=== PATIENT | male | born 1960 | race Two or more races ===

== ENCOUNTER 2019-01-15 00:50 | Inpatient (IN) | payer MEDICAID, OTHER ==
[~2019-01-15] VITALS: Ht 165.1 cm; Wt 74.4 kg
[2019-01-15] VITALS (31 sets, daily range): BP systolic 97–122; BP diastolic 55–73
--- NOTE | 2019-01-15 00:55 | NUR ---
RT AT BEDSIDE
--- NOTE | 2019-01-15 01:00 | NUR ---
AC 12 TITAL V. 500 PEEP 5 FIO2 45 VENT SETTING PER PA
--- NOTE | 2019-01-15 01:00 | NUR ---
PT NADER FROM [facility] C/O HEMATURIA SINCE THIS MORNING. PT IS VENT DEPENDEDNT AND HAS G TUBE. NO ACUTE DISTRESS NOTED. BUMP NOTED ON HEAD. PT IS DNR. CONTRACTERS ON ALL EXTREMITIES NOTED. PLACED ON ASSISTANT PRESSMAN AND PULSE OX. WILL CONTINUE TO MONITOR.
--- NOTE | 2019-01-15 01:12 | NUR ---
XRAY AT BEDSIDE
--- NOTE | 2019-01-15 01:15 | NUR ---
SERNA CATHETER INSERTED 16F
--- NOTE | 2019-01-15 01:17 | NUR ---
SENIOR SOLUTIONS ENGINEER AT BEDSIDE FOR LAB COLELCTION
--- NOTE | 2019-01-15 01:24 | NUR ---
RT NOTE Pt rec'd trached on [facility] vent on noted settings given from RN/RT. No resp distress or SOB noted. Trach is patent and secured, alarms are set and audible. Vent plugged into red outlet. Ambu bag bedside. Will continue to monitor. Addendum: 01/15/19 at 0126 by MAREK CASE RT Amended: Links added.
[2019-01-15] MEDS ORDERED: LIDOCAINE 2% JEL UROJET 10 ML MM ONE (01:26)
[2019-01-15 01:30] LABS: BASOPHILS # (AUTO) 0.1 /CMM (0.0-0.2); BASOPHILS % (AUTO) 0.3 % (0.0-2.0); MONOCYTES # (AUTO) 1.1 /CMM (0.1-1.30); MONOCYTES % (AUTO) 4.8 % (2.0-12.0)
[2019-01-15 01:36] LABS: EOSINOPHILS % (AUTO) 3.8 % (0.0-6.0); LYMPHOCYTES # (AUTO) 1.5 /CMM (0.8-4.8); LYMPHOCYTES % (AUTO) 6.3 % (20.0-44.0); MEAN CORPUSCULAR HGB CONC 32 g/dl (31.0-36.0); MEAN CORPUSCULAR VOLUME 91 fL (80-96); NEUTROPHILS # (AUTO) 19.4 /CMM (1.8-8.9); NEUTROPHILS % (AUTO) 84.8 % (43.0-81.0); PLATELET COUNT (AUTO) 118 /CMM (150-450); WHITE BLOOD COUNT (AUTO) 22.9 K/uL (4.3-11.0)
[2019-01-15 01:37] LABS: RED BLOOD CELL COUNT(AUTO) 1.08 MIL/uL (4.5-6.0)
[2019-01-15 01:40] LABS: HEMOGLOBIN 3.1 g/dL (13.5-17.5)
[2019-01-15 01:41] LABS: HEMATOCRIT 10 % (39-51)
[2019-01-15 01:52] LABS: CREATININE 3.3 mg/dL (0.6-1.3)
[2019-01-15 01:55] LABS: APPEARANCE,URINE Cloudy (CLEAR); BILIRUBIN,URINE MODERATE (NEGATIVE); BLOOD, URINE Large Ery/uL (NEGATIVE); COLOR,URINE Red (YELLOW); KETONES,URINE Trace (NEGATIVE); LEUKOCYTE ESTERASE ,URINE Large (NEGATIVE); NITRITE, URINE Positive (NEGATIVE); PROTEIN,URINE >=300 mg/dl (NEGATIVE); UGLUCOSE Negative (NEGATIVE)
[2019-01-15 01:57] LABS: POTASSIUM 7.1 mmol/L (3.5-5.1)
[2019-01-15 01:58] LABS: PH,URINE >9.0 (5.0-8.0)
[2019-01-15] MEDS ORDERED: SODIUM BICARBONATE SYR 50 MEQ/50 ML DISP.SYRIN IV ONE (02:00)
[2019-01-15] MEDS ORDERED: IV NS 0.9% 1,000 ML BAG IV ONE (02:00)
[2019-01-15] MEDS ORDERED: DEXTROSE 50%-WATER 50 ML DISP.SYRIN IV ONE (02:00)
[2019-01-15] MEDS ORDERED: SODIUM BICARBONATE SYR 100 MEQ in IV D5W 1,000 ML IV ONE (02:00)
[2019-01-15] MEDS ORDERED: CALCIUM CHLORIDE 1,000 MG/10 ML DISP.SYRIN IV ONE (02:00)
[2019-01-15] MEDS ORDERED: MULT1TAB73 GT (02:07)
[2019-01-15] MEDS ORDERED: DOCU100C36 PO (02:07)
[2019-01-15] MEDS ORDERED: OMEG100037 GT (02:07)
[2019-01-15] MEDS ORDERED: SENN-168 GT (02:07)
[2019-01-15] MEDS ORDERED: DEXTROSE 50%-WATER 50 ML DISP.SYRIN ONE (02:07)
[2019-01-15] MEDS ORDERED: LEVE250T2 PO (02:07)
[2019-01-15] MEDS ORDERED: SODIUM BICARBONATE SYR 50 MEQ/50 ML DISP.SYRIN ONE ×2 (02:07→02:08)
[2019-01-15] MEDS ORDERED: CALCIUM CHLORIDE 1,000 MG/10 ML DISP.SYRIN ONE (02:07)
[2019-01-15] MEDS ORDERED: AMLO5TAB9 PO (02:07)
[2019-01-15] MEDS ORDERED: ATOR10TA GT (02:07)
[2019-01-15] MEDS ORDERED: ONDANSETRON HCL/PF 4 MG/2 ML VIAL IVP PRN (02:30)
[2019-01-15] MEDS ORDERED: Z GUARD REMEDY 2 OZ OINT TP PRN (02:30)
[2019-01-15] MEDS ORDERED: HYDROCODONE/APAP 5/325MG 1 EACH TABLET PO PRN (02:30)
[2019-01-15] MEDS ORDERED: MAG HYDROX/AL HYDROX/SIMETH 30 ML UDC PO PRN (02:30)
[2019-01-15 02:32] LABS: EOSINOPHILS % (MANUAL) 3 % (0-4); LYMPHOCYTES % (MANUAL) 10 % (16-48); MONOCYTES % (MANUAL) 5 % (0-11.0); NEUTROPHILS % (MANUAL) 82 (42-76)
[2019-01-15 02:33] LABS: RBC,URINE TOO NUMEROUS TO COUN /HPF (0-2)
[2019-01-15 02:34] LABS: BACTERIA,URINE Many /HPF (None Seen); SQUAMOUS EPITHELIAL CELL,UR Rare /HPF (None Seen)
--- NOTE | 2019-01-15 03:23 | NUR ---
BLOOD TRANSFUSION INITIATED.
--- NOTE | 2019-01-15 03:28 | NUR ---
No reactions noted to Blood transfusion.
--- NOTE | 2019-01-15 03:43 | NUR ---
No reaction noted to blood transfusion
[2019-01-15] MEDS ORDERED: PIPERACILLIN /TAZOBACTAM 3.375 G VIAL IV ONE (04:10)
[2019-01-15] MEDS ORDERED: PIPERACILLIN /TAZOBACTAM 3.375 G in IV D5W 50 ML IV ONE (04:30)
--- NOTE | 2019-01-15 04:38 | NUR ---
BED ASSIGNMENT: [id number]
--- NOTE | 2019-01-15 05:46 | NUR ---
REPORT GIVEN TO IAN RODRIGUEZ FOR ARASH
--- NOTE | 2019-01-15 06:00 | NUR ---
received patient in no acute distress in bed. patient is obtunded, but opens eyes. patient has GCS of 10. Patient is on o2 via mechanical ventilator with setting at ac12, tv 500, fio3 60%, peep 5. patient has trach portex # 7 that is clean dry and intact. patient placed on monitor with sinus rhythm on the monitor. patient has gtube that is clean dry intact and patent with free water flush. patient has left ac 18g that is clean dry intact and patent with sodium bicarb at 100ml/hr. patient has left wrist 18g that is clean dry intact and patent with saline lock. bed in low lock position with rials up x 2. call light within reach and all safety measures ensured and carried out. will endorse care to am rn for continuity of care.
--- NOTE | 2019-01-15 06:15 | NUR ---
Pt transfered per ACLS protocol.
--- NOTE | 2019-01-15 07:00 | NUR ---
endorsed care to fletcher rhoades for continuity of care.
--- NOTE | 2019-01-15 07:05 | NUR ---
RN NOTES RECEIVED PT ON BED, VENT/ TRACH DEPENDENT, OBTUNDED, NO DISTRESS NOTED, ON TELE SR HR IN 70'S. SERNA DRINING TO GRAVITY, L WRIST AND L AC IV SITE GT 18 , CLEAN, DRY AND INTACT, SR UP x3, CALL LIGHT WITHIN EASY REACH, BED LOCKED AND IN LOWEST POSITION, CONTINUE TO MONITOR
[2019-01-15 07:07] LABS: BASOPHILS # (AUTO) 0.1 /CMM (0.0-0.2); BASOPHILS % (AUTO) 0.2 % (0.0-2.0); EOSINOPHILS % (AUTO) 3.1 % (0.0-6.0); LYMPHOCYTES % (AUTO) 5.4 % (20.0-44.0); MEAN CORPUSCULAR HGB CONC 32 g/dl (31.0-36.0); MEAN CORPUSCULAR VOLUME 91 fL (80-96); MONOCYTES # (AUTO) 1.7 /CMM (0.1-1.30); MONOCYTES % (AUTO) 4.5 % (2.0-12.0); NEUTROPHILS # (AUTO) 32.4 /CMM (1.8-8.9); NEUTROPHILS % (AUTO) 86.8 % (43.0-81.0); PLATELET COUNT (AUTO) 101 /CMM (150-450)
[2019-01-15 07:15] LABS: RED BLOOD CELL COUNT(AUTO) 1.65 MIL/uL (4.5-6.0); WHITE BLOOD COUNT (AUTO) 37.4 K/uL (4.3-11.0)
[2019-01-15 07:16] LABS: CHOLESTEROL 48 mg/dL (<200); HEMATOCRIT 15 % (39-51); HEMOGLOBIN 4.8 g/dL (13.5-17.5); LDL 18 mg/dL (0-99); TRIGLYCERIDES 250 mg/dL (30-150)
[2019-01-15 07:19] LABS: HDL CHOLESTEROL < 10 mg/dL (40-60)
[2019-01-15 07:23] LABS: CALCIUM, SERUM 11.4 mg/dL (8.5-10.1); CARBON DIOXIDE 21 mmol/L (21-32); CHLORIDE 98 mmol/L (98-107); CREATININE 2.9 mg/dL (0.6-1.3); GLUCOSE 87 mg/dL (74-106); MAGNESIUM 2.3 mg/dL (1.8-2.4); PHOSPHORUS 6.2 mg/dL (2.5-4.9); SODIUM SERUM 133 mmol/L (136-145)
[2019-01-15 07:24] LABS: UREA NITROGEN, BLOOD 81 mg/dL (7-18)
[2019-01-15] MEDS ORDERED: FEE PK DOSING 1 MIN EA MC ONE (08:25)
[2019-01-15] MEDS ORDERED: DEXTROSE 50%-WATER 50 ML DISP.SYRIN IVP ONE (08:30)
[2019-01-15] MEDS ORDERED: SODIUM POLYSTYRENE SULFONATE 15 G/60 ML BOTTLE PO ONE (08:30)
[2019-01-15] MEDS ORDERED: IV NS 0.9% 1,000 ML IV SCH (08:30)
[2019-01-15] MEDS ORDERED: INSULIN REGULAR, HUMAN 100 UNIT/ML 3 ML VIAL IV ONE (08:30)
[2019-01-15] MEDS: LEVETIRACETAM (250 MG) 250 MG TABLET PO SCH ×2 (08:46→16:08)
[2019-01-15] MEDS: MULTIVITAMINS,THERAGRAN 1 UDTAB TABLET PO SCH (08:46)
[2019-01-15] MEDS: AMLODIPINE BESYLATE 5 MG TABLET PO SCH (08:58)
[2019-01-15] MEDS ORDERED: Medication Not On Formulary EA (Omega-3/Dha/Epa/Fish Oil (Fish Oil 1,000 mg Softgel) 1,0 GT SCH (09:00)
[2019-01-15] MEDS ORDERED: Medication Not On Formulary EA (Multivitamins 1 EACH) GT SCH (09:00)
[2019-01-15] MEDS ORDERED: VANCOMYCIN HCL 1 GM in IV D5W 260 ML IV ONE (09:00)
[2019-01-15] MEDS: FAMOTIDINE/PF INJ 20 MG/2 ML VIAL IV SCH ×2 (09:40→20:39)
[2019-01-15 09:45] LABS: ABG OXYGEN SATURATION 98.2 % (92.0-98.5); ABG PCO2 37.6 mmHg (35.0-45.0); ABG PH 7.397 (7.350-7.450); ABG PO2 125.9 mmHg (75.0-100.0); AaDO2 116.1 mmHg; COHb 1.5 % (0.5-1.5); MetHb 1.2 % (0.0-1.5); O2Hb 95.5 % (94.0-97.0); SITE, ABG Right Radial
[2019-01-15] MEDS: IPRATROPIUM NEB FS 0.5 MG/2.5 ML AMPUL.NEB NEB SCH ×5 (09:54→23:20)
[2019-01-15] MEDS ORDERED: ALBUTEROL FS 2.5 MG/3 ML VIAL.NEB NEB ONE (10:00)
[2019-01-15] MEDS ORDERED: BUMETANIDE INJ 0.25 MG/ML VIAL IV ONE (10:30)
[2019-01-15 10:37] LABS: BAND % (MANUAL) 17 % (0.0-5.0); EOSINOPHILS % (MANUAL) 10 % (0-4); LYMPHOCYTES % (MANUAL) 13 % (16-48); METAMYELOCYTES % 5 % (0-0); MONOCYTES % (MANUAL) 7 % (0-11.0); MYELOCYTES % 2 % (0-0); NEUTROPHILS % (MANUAL) 46 (42-76)
[2019-01-15] MEDS ORDERED: BUMETANIDE INJ 2 MG in IV NS 0.9% 32 ML IV ONE (11:00)
[2019-01-15] MEDS: ALBUTEROL HALF STRENGTH 1.25 MG/3 ML VIAL.NEB NEB SCH ×4 (11:13→23:20)
[2019-01-15 12:35] LABS: CREATININE 2.8 mg/dL (0.6-1.3)
[2019-01-15 12:46] LABS: POTASSIUM 6.2 mmol/L (3.5-5.1)
[2019-01-15 12:50] LABS: IRON, SERUM 27 ug/dl (50-175); TOTAL IRON BINDING CAPACITY 216 ug/dl (250-450)
[2019-01-15 13:22] LABS: BASOPHILS # (AUTO) 0.1 /CMM (0.0-0.2); BASOPHILS % (AUTO) 0.2 % (0.0-2.0); EOSINOPHILS % (AUTO) 11.7 % (0.0-6.0); LYMPHOCYTES # (AUTO) 1.7 /CMM (0.8-4.8); LYMPHOCYTES % (AUTO) 6.6 % (20.0-44.0); MEAN CORPUSCULAR HGB CONC 33 g/dl (31.0-36.0); MEAN CORPUSCULAR VOLUME 89 fL (80-96); MONOCYTES # (AUTO) 0.7 /CMM (0.1-1.30); MONOCYTES % (AUTO) 2.6 % (2.0-12.0); NEUTROPHILS # (AUTO) 20.9 /CMM (1.8-8.9); NEUTROPHILS % (AUTO) 78.9 % (43.0-81.0); PLATELET COUNT (AUTO) 98 /CMM (150-450); RED BLOOD CELL COUNT(AUTO) 2.23 MIL/uL (4.5-6.0); WHITE BLOOD COUNT (AUTO) 26.5 K/uL (4.3-11.0)
[2019-01-15 13:31] LABS: HEMATOCRIT 20 % (39-51); HEMOGLOBIN 6.5 g/dL (13.5-17.5)
--- NOTE | 2019-01-15 14:12 | NUR ---
RN NOTES DR REYNOLDS NOTIFED REGARDING K=6.2, LA 2.8 H/H 6.5/20 AND PROCALCITONIN 36.91 , NO NEW ORDER GIVEN, CONTINUE TO MONITOR .
[2019-01-15 14:47] LABS: BAND % (MANUAL) 30 % (0.0-5.0); NEUTROPHILS % (MANUAL) 40 (42-76)
[2019-01-15 14:48] LABS: EOSINOPHILS % (MANUAL) 10 % (0-4); LYMPHOCYTES % (MANUAL) 6 % (16-48); METAMYELOCYTES % 10 % (0-0); MONOCYTES % (MANUAL) 2 % (0-11.0); MYELOCYTES % 2 % (0-0)
[2019-01-15] MEDS: IV NS 0.9% 1,000 ML IV SCH (15:39)
[2019-01-15] MEDS: NEPRO 1,000 ML BOTTLE GT PRN (15:58)
--- NOTE | 2019-01-15 16:00 | NUR ---
RN NOTES DR RODRIGUEZ AT THE BEDSIDE, PT STATED ON BLADER IRRIGATION BY . CONTINUE TO MONITOR.
[2019-01-15 16:03] LABS: BILIRUBIN,DIRECT 1.2 mg/dL (0.0-0.2); BILIRUBIN,TOTAL 1.7 mg/dL (0.2-1.0)
[2019-01-15] MEDS: ACETAMINOPHEN 325 MG TABLET PO PRN (16:08)
--- NOTE | 2019-01-15 16:43 | NUR ---
RN NOTES DR REYNOLDS NOTIFED REGARDING LA =2.9
--- NOTE | 2019-01-15 18:45 | NUR ---
RN NOTES TWO UNITS OF PRBC'S INFUSED ON THIS SHIFT, BLADDER IRRIGATION RUNNING , SERNA DRINING LIGHT BLOODY URINE, VSS STABLE, PT TOLERANT TF AT 10CC/HR WELL, NO BM YET ON THIS SHIFT, SR UP x3, CALL LIGHT WITHIN EASY REACH, BED LOCKED AND IN LOWEST POSITION, WILL ENDOSE TO LUMBER STACKER NURSE FOR CONTINUITY OF CARE.
[2019-01-15] MEDS ORDERED: diphenhydrAMINE HCL 50 MG/ML VIAL IV ONE (19:30)
[2019-01-15] MEDS ORDERED: ACETAMINOPHEN 325 MG TABLET PO ONE (19:30)
[2019-01-15] MEDS ORDERED: PHYTONADIONE INJ 10 MG/1 ML AMPUL SQ ONE (19:30)
[2019-01-15] MEDS ORDERED: FOLIC ACID 1 MG TABLET PO SCH (19:30)
[2019-01-15 19:50] LABS: ALBUMIN 1.5 g/dL (3.4-5.0); BILIRUBIN,DIRECT 1.5 mg/dL (0.0-0.2); TOTAL PROTEIN, SERUM 6.1 g/dL (6.4-8.2)
--- NOTE | 2019-01-15 20:00 | NUR ---
MAIL HANDLER EQUIPMENT OPERATOR NOTE PT IN BED OBTUNDED. ON VENT/TRACH TOLERATING THE SETTINGS WELL. NO DISTRESS OR DISCOMFORT NOTED. NO S/S OF PAIN NOTED. ON TELE ST HR 102. F/C INTACT AND PATENT ON CONTINUES IRRIGATION URINE COLOR PICK TO LIGHT REDDISH. GT INTACT AND PATENT INFUSING JEVITY 1.8 AT 10 ML/HR, 0 ML RESIDUAL NOTED. KEPT HOB ELEVATED. WILL INCREASE IT PT IS TOLERATING IT. IVF NS INFUSING AT 125 ML/HR, NO S/S OF INFILTRATION NOTED. REPOSITION HIM FOR COMFORT AND SKIN MANAGEMENT. SIDE RAILS UP X 3 AND CALL LIGHT WITHIN REACH. VSS. CONTINUE TO MONITOR HIM.
[2019-01-15] MEDS: FOLIC ACID 1 MG TABLET PO SCH (20:56)
[2019-01-15] MEDS ORDERED: ZOLPIDEM TARTRATE 5 MG TABLET PO PRN (21:00)
[2019-01-15] MEDS: PIPERACILLIN /TAZOBACTAM 2.25 G in IV D5W 50 ML IV SCH (21:04)
[2019-01-15] MEDS: SENNOSIDES 8.6 MG TABLET GT SCH (21:06)
[2019-01-15] MEDS: DOCUSATE SODIUM 100 MG CAPSULE PO SCH (21:06)
[2019-01-15] MEDS: ATORVASTATIN 10 MG TABLET GT SCH (21:06)
--- NOTE | 2019-01-15 21:17 | NUR ---
PROFESSIONAL ARCHITECT NOTE ON TELE MONITOR PT IS A FLUTTER AT THIS TIME HR 80. CHARGE NURSE MADE AWARE.
--- NOTE | 2019-01-15 21:30 | NUR ---
CHIEF WHEELAGE CLERK NOTE 1 UNIT OF PRBC STARTED VSS. THIS IS THE 4 UNIT OF PRBC. DAY SHIFT GIVEN THE OTHERS.
--- NOTE | 2019-01-15 22:00 | NUR ---
HEATING ELEMENT WINDER NOTE PT BACK ON SR HR 80. INCONTINENCE CARE GIVEN. BM X 1 SEMI LIQUIDY MODERATE AMOUNT.
[2019-01-16] VITALS (25 sets, daily range): BP systolic 99–124; BP diastolic 59–78
[2019-01-16] MEDS: IV NS 0.9% 1,000 ML IV SCH ×3 (03:18→22:12)
[2019-01-16] MEDS: PIPERACILLIN /TAZOBACTAM 2.25 G in IV D5W 50 ML IV SCH ×3 (03:34→15:25)
[2019-01-16] MEDS: ALBUTEROL HALF STRENGTH 1.25 MG/3 ML VIAL.NEB NEB SCH ×7 (03:50→23:23)
[2019-01-16] MEDS: IPRATROPIUM NEB FS 0.5 MG/2.5 ML AMPUL.NEB NEB SCH ×7 (03:50→23:23)
[2019-01-16 04:29] LABS: EOSINOPHILS % (AUTO) 2.6 % (0.0-6.0); HEMATOCRIT 24 % (39-51); HEMOGLOBIN 8.5 g/dL (13.5-17.5); LYMPHOCYTES # (AUTO) 1.3 /CMM (0.8-4.8); LYMPHOCYTES % (AUTO) 7.8 % (20.0-44.0); MEAN CORPUSCULAR HGB CONC 35 g/dl (31.0-36.0); MEAN CORPUSCULAR VOLUME 89 fL (80-96); MONOCYTES # (AUTO) 0.6 /CMM (0.1-1.30); MONOCYTES % (AUTO) 3.7 % (2.0-12.0); NEUTROPHILS # (AUTO) 14.4 /CMM (1.8-8.9); NEUTROPHILS % (AUTO) 85.9 % (43.0-81.0); PLATELET COUNT (AUTO) 58 /CMM (150-450); RED BLOOD CELL COUNT(AUTO) 2.74 MIL/uL (4.5-6.0); WHITE BLOOD COUNT (AUTO) 16.8 K/uL (4.3-11.0)
[2019-01-16 04:32] LABS: OCCULT BLOOD STOOL POSITIVE (NEGATIVE)
[2019-01-16 04:36] LABS: CALCIUM, SERUM 10.1 mg/dL (8.5-10.1); CREATININE 2.6 mg/dL (0.6-1.3)
[2019-01-16 05:04] LABS: THYROID STIMULATING HORMONE 2.2 uIU/mL (0.358-3.74)
[2019-01-16 05:42] LABS: BASOPHILS % (MANUAL) 1 % (0.0-2.0); EOSINOPHILS % (MANUAL) 1 % (0-4); LYMPHOCYTES % (MANUAL) 7 % (16-48); MONOCYTES % (MANUAL) 3 % (0-11.0); NEUTROPHILS % (MANUAL) 88 (42-76)
--- NOTE | 2019-01-16 07:03 | NUR ---
CARTOONIST SPECIAL EFFECTS NOTE 2 UNIT FOR FFP HUNGED AND INFUSING WELL. VSS. NO DISTRESS OR DISCOMFORT NOTED. ON TELE SR 90. BLADDER IRRIGATION CONTINUES REMAIN WITH SMALL AMOUNT OF CLOTS AND COLOR LIGHT REDDISH. DVT PUMP ON LOWER EXT'S. IVF NS INFUSING AT 75 ML INFUSING WELL, NO S/S OF INFILTRATION NOTED. ALL NEEDS ATTENDED. REPOSITION HIM Q2H, KEPT HIM DRY AND CLEAN. VSS. ENDOSE TO DAY SHIFT NURSE ADEL FOR CONTINUE TO CARE.
--- NOTE | 2019-01-16 07:10 | NUR ---
RN NOTE RECEIVED PT ON BED, VENT/ TRACH DEPENDENT, TOLERATING , CURRENT VENT SETTING WELL, RECEIVING 1 UNIT FOR FFP AT THIS TIME, NO DISTRESS NOTED, ON TELE SR HR IN 90'S , BLADDER IRRIGATION CONTINUES REMAIN WITH SMALL AMOUNT OF CLOTS AND COLOR LIGHT REDDISH. DVT PUMP ON LOWER EXT'S. IVF NS INFUSING AT 75 ML INFUSING WELL, NO S/S OF INFILTRATION NOTED. SR UP x3, CALL LIGHT WITHIN EASY REACH, BED LOCKED AND IN LOWEST POSITION. CONTINUE TO MONITOR .
[2019-01-16] MEDS: MULTIVITAMINS,THERAGRAN 1 UDTAB TABLET PO SCH (08:11)
[2019-01-16] MEDS: LEVETIRACETAM (250 MG) 250 MG TABLET PO SCH ×2 (08:11→16:21)
[2019-01-16] MEDS: FAMOTIDINE/PF INJ 20 MG/2 ML VIAL IV SCH ×2 (08:11→21:42)
[2019-01-16] MEDS: AMLODIPINE BESYLATE 5 MG TABLET PO SCH (08:12)
[2019-01-16] MEDS: FOLIC ACID 1 MG TABLET PO SCH (08:12)
[2019-01-16] MEDS ORDERED: VANCOMYCIN 0.75 GM in IV D5W 250 ML IV SCH (09:00)
[2019-01-16] MEDS ORDERED: FOLIC ACID 1 MG TABLET PO SCH (09:00)
--- NOTE | 2019-01-16 10:05 | NUR ---
WOUND CARE CONSULT: PT PRESENTS WITH INCONTINENCE OF VERY LOOSE STOOL, SACRAL SCARRING WHICH EXTENDS TO BUTTOCKS, INCONTINENCE ASSOCIATED SKIN DAMAGE TO BUTTOCKS WITH EDEMA AND PERIANAL REDNESS, ALL PRESENT ON ADMISSION. RECOMMENDATIONS MADE FOR SKIN PROTECTION. DISCUSSED WITH NURSING STAFF. FIRST STEP LOW AIRLOSS MATTRESS ON ORDER. WILL SEE PRN. REDMOND IN AGREEMENT WITH PLAN OF CARE. Addendum: 01/16/19 at 1007 by SUSI PRICE WNDNU Amended: Links added.
--- NOTE | 2019-01-16 12:00 | NUR ---
RN NOTES PT TOLERATING TF WELL, VSS STABLE , LIGHT BLOODY URINE DRAINING WITH CONTINUOUS BLADDER IRRIGATION, CONTINUE TO MONITOR
[2019-01-16 12:41] LABS: BASOPHILS % (AUTO) 0.1 % (0.0-2.0); HEMATOCRIT 25 % (39-51); HEMOGLOBIN 8.7 g/dL (13.5-17.5); LYMPHOCYTES # (AUTO) 1.1 /CMM (0.8-4.8); LYMPHOCYTES % (AUTO) 7.2 % (20.0-44.0); MEAN CORPUSCULAR HGB CONC 35 g/dl (31.0-36.0); MEAN CORPUSCULAR VOLUME 88 fL (80-96); MONOCYTES # (AUTO) 0.7 /CMM (0.1-1.30); MONOCYTES % (AUTO) 4.5 % (2.0-12.0); NEUTROPHILS # (AUTO) 13.2 /CMM (1.8-8.9); NEUTROPHILS % (AUTO) 86.2 % (43.0-81.0); PLATELET COUNT (AUTO) 61 /CMM (150-450); RED BLOOD CELL COUNT(AUTO) 2.83 MIL/uL (4.5-6.0); WHITE BLOOD COUNT (AUTO) 15.3 K/uL (4.3-11.0)
[2019-01-16 14:36] LABS: BAND % (MANUAL) 20 % (0.0-5.0); EOSINOPHILS % (MANUAL) 1 % (0-4); LYMPHOCYTES % (MANUAL) 9 % (16-48); METAMYELOCYTES % 3 % (0-0); MONOCYTES % (MANUAL) 3 % (0-11.0); MYELOCYTES % 2 % (0-0); NEUTROPHILS % (MANUAL) 62 (42-76)
[2019-01-16] MEDS: NEPRO 1,000 ML BOTTLE GT PRN (14:50)
[2019-01-16] MEDS: LACTOBACILLUS RHAMNOSUS GG 1 EACH CAP.SPRINK GT SCH (16:20)
--- NOTE | 2019-01-16 17:00 | NUR ---
RN NOTES T=102, ЮЛИЯ ENGINEERING DIRECTOR NOITFED, COOLING MEASURES DONE, TYLENOL GIVEN , CONTINUE TO MONITOR
--- NOTE | 2019-01-16 18:00 | NUR ---
RN NOTES OK TO TRANSFER PT TO SEE PER ЮЛИЯ DANIELS .
--- NOTE | 2019-01-16 18:30 | NUR ---
RN NOTES PT TRANSFERRED TO ROOM 104, VIA ACLS PROTOCOL , REPORT GIVEN TO CHANNEL RN FOR CONTINUITY OF CARE .NO BELONGINGS NOTED
--- NOTE | 2019-01-16 18:31 | NUR ---
SEE RN Received patient from COOKER SULFATE Domi. Obtunded, attached to [facility] vent, no SOB or respiratory distress noted. Tele monitor attached, sinus rhythm HR 100, SPO2 100%. GTF running @60mL/hr, no residual noted. Damon catheter 22fr running continuous bladder irrigation NS @100mL/hr, noted hematuria. L wrist 18G, L AC 18G infusing NS @125mL/hr, C/D/I. Temp upon arrival 102.2F, cooling measures in place, medi therm machine at bedside, continuous temp probe in right nares. DVT pumps on and functioning. KCI mattress at bedside, endorse to noc RN. See vitals documentation. Medications transferred and placed in med room. No belongings noted.
[2019-01-16] MEDS: ACETAMINOPHEN 325 MG TABLET PO PRN (19:30)
[2019-01-16] MEDS ORDERED: IBUPROFEN 600 MG TABLET PO ONE (19:30)
--- NOTE | 2019-01-16 20:30 | NUR ---
RN NOTE. INITIAL ASSESSMENT. RECEIVED THE PT REPORT FROM MELINDA RODRIGUEZ. PT REST ON THE BED. TRACH TO VENT CONNECTED. PT IS OBTUNDED, RECEIVED WITH TEMPERATURE 102.5. COOLING MEASURE ON, PT LAST RECEIVED THE TYLENOL 27H AGO. VENT SETTINGS AC 12,TV 500,FIO2 40%,PEEP 5. SAT 98%. FINANCIAL ECONOMIST SHOWING S TACH. IV LT HAND AC 18G. IVF NS 125ML/H, FC PATENT. CONTINUES BLADDER IRRIGATION 100ML/H. HEMATURIA PRESENT. GT FEEDING NEPHRO 60ML/H. HOB ELEVATED. WILL CONTINUE TO MONITOR VITALS.
[2019-01-16] MEDS: DOCUSATE SODIUM 100 MG CAPSULE PO SCH (21:33)
[2019-01-16] MEDS: SENNOSIDES 8.6 MG TABLET GT SCH (21:33)
--- NOTE | 2019-01-16 21:35 | NUR ---
RN NOTE SENOKOT AND COLACE NOT GIVEN. PT HAS LOOSE STOOL
[2019-01-16] MEDS: MEROPENEM 500 MG in IV NS 0.9% 50 ML IV SCH (21:42)
[2019-01-16] MEDS: ATORVASTATIN 10 MG TABLET GT SCH (21:42)
[2019-01-17] VITALS: BP 112/55
[2019-01-17] MEDS: ACETAMINOPHEN 325 MG TABLET PO PRN ×4 (01:09→17:52)
--- NOTE | 2019-01-17 02:29 | NUR ---
rn note report given to yoli rhoades
--- NOTE | 2019-01-17 02:30 | NUR ---
TD RN NOTE: RECEIVED BEDSIDE REPORT FROM JENNIFER MCKINNON. PT OBTUNDED WITH NO APPARENT DISTRESS NOTED. NO FACIAL GRIMACING OR ANY SIGNS OF PAIN NOTED. [facility], SETTINGS ORDERED. NO SOB NOTED. ON TELE MONITOR SINUS RHYTHM HR 90 BPM. SERNA CATH INTACT AND PATENT, HEMATURIA STILL NOTED, ON CONTINUOUS BLADDER IRRIGATION. GT INTACT, NO RESIDUAL NOTED AT THIS TIME. PT NOTED TO HAVE FEVER, TYLENOL GIVEN BY JENNIFER MCKINNON. KEPT CLEAN, DRY AND COMFORTABLE. SAFETY AND FALL PRECAUTIONS OBSERVED AND MAINTAINED. WILL CONTINUE TO MONITOR PT.
[2019-01-17] MEDS ORDERED: IV NS 0.9% 1,000 ML IV PRN (03:00)
[2019-01-17] MEDS: ALBUTEROL HALF STRENGTH 1.25 MG/3 ML VIAL.NEB NEB SCH ×6 (03:13→23:13)
[2019-01-17] MEDS: IPRATROPIUM NEB FS 0.5 MG/2.5 ML AMPUL.NEB NEB SCH ×6 (03:13→23:13)
[2019-01-17 04:00] VITALS: BP 134/76
[2019-01-17 06:32] LABS: CREATININE 2.6 mg/dL (0.6-1.3); POTASSIUM 3.7 mmol/L (3.5-5.1)
[2019-01-17 06:38] LABS: BASOPHILS # (AUTO) 0.1 /CMM (0.0-0.2); BASOPHILS % (AUTO) 0.5 % (0.0-2.0); EOSINOPHILS % (AUTO) 0.7 % (0.0-6.0); HEMATOCRIT 25 % (39-51); HEMOGLOBIN 8.2 g/dL (13.5-17.5); LYMPHOCYTES # (AUTO) 1.3 /CMM (0.8-4.8); LYMPHOCYTES % (AUTO) 7.5 % (20.0-44.0); MEAN CORPUSCULAR HGB CONC 34 g/dl (31.0-36.0); MEAN CORPUSCULAR VOLUME 89 fL (80-96); MONOCYTES # (AUTO) 0.7 /CMM (0.1-1.30); MONOCYTES % (AUTO) 4.2 % (2.0-12.0); NEUTROPHILS % (AUTO) 87.1 % (43.0-81.0); PLATELET COUNT (AUTO) 81 /CMM (150-450); RED BLOOD CELL COUNT(AUTO) 2.78 MIL/uL (4.5-6.0); WHITE BLOOD COUNT (AUTO) 17.3 K/uL (4.3-11.0)
--- NOTE | 2019-01-17 06:44 | NUR ---
TD RN NOTE: PT IN BED, NO ACUTE DISTRESS NOTED. TEMP 101.9, TYLENOL GIVEN ORDERED, COOLING MEASURES PROVIDED. [facility], SETTINGS ORDERED. NO SOB NOTED. ON TELE MONITOR SINUS TACHY HR 102 BPM. SERNA CATH INTACT, DRAINED 600ML OF BLOOD TINGED URINE OUTPUT. GT INTACT AND PATENT ABLE TO TOLERATE FEEDING WELL. KEPT CLEAN, DRY AND COMFORTABLE. SAFETY AND FALL PRECAUTIONS OBSERVED AND MAINTAINED. WILL ENDORSE TO DAY SHIFT RN FOR CONTINUITY OF CARE.
--- NOTE | 2019-01-17 07:30 | NUR ---
RN NOTES RECEIVED PATIENT IN BED, OBTUNDED, NOT ON ANY FORM OF DISTRESS. VENT DEPENDENT, TOLERATING CURRENT VENT SETTING, SATING WELL. SINUS TACHY ON THE HR ON 105. NO INDICATION OF PAIN AT THIS TIME.GT IN PLACE, PLACEMENT CHECK BY CHECKING GASTRIC RESIDUAL: NO RESIDUAL ON CHECKING. GTF RUNNING AT DESIRED RATE. IVF OF NS AT 125CC/HR INFUSING WELL OVER THE LAC G 18 IV SITE. SITE CLEAN, IN PLACE AND DRY. SERNA CATHETER IN PLACE, HEMATURIA NOTED. ON CONTINUOS BLADDER IRRIGATION AT 100CC/HR, WILL CONTINUE TO MONITOR. SAFETY MEASURES OBSERVED AND MAINTAINED. HOB KEPT ELEVATED. BED IN LOW AND LOCKED POSITIONED. CALL LIGHT WITHIN REACH. WILL CONTINUE TO MONITOR PATIENT AND ANTICIPATE NEEDS.
[2019-01-17 08:00] VITALS: BP 138/83
[2019-01-17 08:06] LABS: IMMUNOGLOBULIN A, SERUM 268 mg/dL (90-386); IMMUNOGLOBULIN G, SERUM 703 mg/dL (700-1600); IMMUNOGLOBULIN M, SERUM 43 mg/dL (20-172)
[2019-01-17 08:46] LABS: BAND % (MANUAL) 7 % (0.0-5.0); EOSINOPHILS % (MANUAL) 1 % (0-4); LYMPHOCYTES % (MANUAL) 5 % (16-48); METAMYELOCYTES % 1 % (0-0); MONOCYTES % (MANUAL) 6 % (0-11.0); NEUTROPHILS % (MANUAL) 80 (42-76)
[2019-01-17] MEDS: AMLODIPINE BESYLATE 5 MG TABLET PO SCH (09:13)
[2019-01-17] MEDS: FAMOTIDINE/PF INJ 20 MG/2 ML VIAL IV SCH ×2 (09:13→22:04)
[2019-01-17] MEDS: LACTOBACILLUS RHAMNOSUS GG 1 EACH CAP.SPRINK GT SCH ×2 (09:13→17:52)
[2019-01-17] MEDS: LEVETIRACETAM (250 MG) 250 MG TABLET PO SCH ×2 (09:13→17:52)
[2019-01-17] MEDS: MULTIVITAMINS,THERAGRAN 1 UDTAB TABLET PO SCH (09:13)
[2019-01-17] MEDS: FOLIC ACID 1 MG TABLET PO SCH (09:14)
--- NOTE | 2019-01-17 09:24 | NUR ---
RT RECEIVED PT TRACH'D ON [facility] VENT WITH SETTINGS PER MD ORDER. TECHNOLOGY SALES CONSULTANT DONE. SPARE TRACH AND AMBU BAG AT HEAD OF BED. BREATHING TX'S GIVEN ORDERED. NO ADVERSE REACTIONS OBSERVED. SUCTIONED AND MONITORED PRN. NO SOB NOTED. WILL CONTINUE TO MONITOR FOR ANY CHANGES. Addendum: 01/17/19 at 1538 by RAKEL BRANCH RT Amended: Links added.
[2019-01-17 10:06] LABS: *SPE A/G RATIO 0.5 (0.7-1.7); *SPE ALBUMIN 1.6 g/dL (2.9-4.4); *SPE ALPHA-1-GLOBULIN 0.7 g/dL (0.0-0.4); *SPE ALPHA-2-GLOBULIN 0.8 g/dL (0.4-1.0); *SPE GLOBULIN, TOTAL 3.2 g/dL (2.2-3.9); *SPE M-SPIKE Not Observed g/dL (Not Observed); *SPEGAMMA GLOBULIN 0.7 g/dL (0.4-1.8)
--- NOTE | 2019-01-17 11:00 | NUR ---
JENNIFER NOTES Sandra REDMAN REFUELING RAMPMAN, INFORMED THAT IRRIGATION IS NOT HAVING BACK FLOWS, SERNA CATHETER IS PATENT ON MANUAL FLUSHING WITH 60CC NORMAL SALINE. PER WALDO IV SHOULD BE STOPPED. SHE IS ALSO AWARE THAT PATIENT'S STOMACH IS DISTENDED. Addendum: 01/17/19 at 2000 by LIN GUTIÉRREZ RN Sandra REDMAN ALSO AWARE THAT PATIENT IS WITH CONTINUOS FEVER. Addendum: 01/17/19 at 2001 by LIN GUTIÉRREZ RN ALSO OBTAINED ORDER TO REPLACE SERNA CATHETER
[2019-01-17 12:00] VITALS: BP 105/70
--- NOTE | 2019-01-17 15:00 | NUR ---
RN NOTES INFORMED MD ABOUT CRITICAL PROCALCITONIN LEVEL AT 3.3. NO NEW ORDERS AT THIS TIME
[2019-01-17 16:00] VITALS: BP 110/78
[2019-01-17] MEDS: NEPRO 1,000 ML BOTTLE GT PRN (19:12)
--- NOTE | 2019-01-17 19:30 | NUR ---
RN NOTES ENDORSED PATIENT FOR CONTINUITY OF CARE. NOT ON ANY FORM OF DISTRESS. GTF FREE FLOWING AT DESIRED RATE. BLADDER IRRIGATION STILL ON SERNA CATHETER STILL DRAINING TO BLOODY OUTPUT. HOB ELEVATED. SAFETY MEASURES IN PLACE AT ALL TIMES. CALL LIGHT WITHIN REACH
--- NOTE | 2019-01-17 19:39 | NUR ---
TD RN NOTES RECEIVED PT ON BED. OBTUNDED. ON MECH VENT NO RESPIRATORY DISTRESS NOTED. ON TELE MONITOR ST 110. GTUBE FEEDING @ 60CC/HR, NO RESIDUAL NOTED. ON SERNA CATH WITH CONTINUOUS BLADDER IRRIGATION WITH BLOODY OUTPUT. IV ACCESS ON LEFT WRIST AND LAC G18 SALINE LOCK. HEAD OF BED ELEVATED. SIDE RAILS UP. CALL LIGHT WITHIN REACH. BED IN LOW AND LOCKED POSITION. WILL MONITOR PT CLOSELY
[2019-01-17 20:00] VITALS: BP 105/86
[2019-01-17 20:00] LABS: BILIRUBIN,TOTAL 1.3 mg/dL (0.2-1.0)
--- NOTE | 2019-01-17 20:11 | NUR ---
RT PT RECEIVED ON CURRENT VENT SETTINGS. PT TRACHED, PORTEX 7. MODERATE, THICK SECRETIONS SUCTIONED. HOB AT 30 DEGREES. PT IN NO APPARENT RESPIRATORY DISTRESS. AMBU BAG AT BEDSIDE. WILL CONTINUE TO MONITOR. Addendum: 01/17/19 at 2016 by NANCI VILLA RT Amended: Links added.
[2019-01-17] MEDS: MEROPENEM 500 MG in IV NS 0.9% 50 ML IV SCH (20:16)
--- NOTE | 2019-01-17 20:47 | NUR ---
NGUYEN RN NOTES PT HYPERTHERMIC, ON COOLING BLANKET.
[2019-01-17] MEDS: SENNOSIDES 8.6 MG TABLET GT SCH (22:03)
[2019-01-17] MEDS: DOCUSATE SODIUM 100 MG CAPSULE PO SCH (22:04)
[2019-01-17] MEDS: ATORVASTATIN 10 MG TABLET GT SCH (22:04)
--- NOTE | 2019-01-17 22:24 | NUR ---
TD RN NOTES LACTIC REPORTED. NO NEW ORDERS.
[2019-01-18] VITALS: BP 87/46
[2019-01-18] MEDS: ACETAMINOPHEN 325 MG TABLET PO PRN (00:21)
[2019-01-18] MEDS ORDERED: IV NS 0.9% 1,000 ML IV ONE (01:30)
--- NOTE | 2019-01-18 01:30 | NUR ---
BLOOD BANK MANAGER NOTES CALLED ALEX OTERO FOR PATIENT'S BP IN 70S & RECEIVED NEW ORDERS FOR 1L BOLUS X1 & RESTART IV FLUIDS. NEW ORDERS NOTED & CARRIED OUT.
[2019-01-18] MEDS: IV NS 0.9% 1,000 ML IV PRN ×3 (02:26→20:05)
[2019-01-18] MEDS: IPRATROPIUM NEB FS 0.5 MG/2.5 ML AMPUL.NEB NEB SCH ×6 (03:27→23:32)
[2019-01-18] MEDS: ALBUTEROL HALF STRENGTH 1.25 MG/3 ML VIAL.NEB NEB SCH ×6 (03:27→23:32)
[2019-01-18 04:00] VITALS: BP 90/56
[2019-01-18 07:21] LABS: BASOPHILS % (AUTO) 0.2 % (0.0-2.0); EOSINOPHILS % (AUTO) 1.6 % (0.0-6.0); HEMATOCRIT 21 % (39-51); LYMPHOCYTES # (AUTO) 0.9 /CMM (0.8-4.8); LYMPHOCYTES % (AUTO) 10.6 % (20.0-44.0); MEAN CORPUSCULAR HGB CONC 34 g/dl (31.0-36.0); MEAN CORPUSCULAR VOLUME 89 fL (80-96); MONOCYTES # (AUTO) 0.4 /CMM (0.1-1.30); MONOCYTES % (AUTO) 4.9 % (2.0-12.0); NEUTROPHILS # (AUTO) 7.3 /CMM (1.8-8.9); NEUTROPHILS % (AUTO) 82.7 % (43.0-81.0); PLATELET COUNT (AUTO) 91 /CMM (150-450); RED BLOOD CELL COUNT(AUTO) 2.32 MIL/uL (4.5-6.0); WHITE BLOOD COUNT (AUTO) 8.8 K/uL (4.3-11.0)
[2019-01-18 07:48] LABS: CREATININE 3.7 mg/dL (0.6-1.3); MAGNESIUM 1.9 mg/dL (1.8-2.4); PHOSPHORUS 5.7 mg/dL (2.5-4.9); POTASSIUM 4.6 mmol/L (3.5-5.1)
[2019-01-18 08:00] VITALS: BP 95/57
--- NOTE | 2019-01-18 08:00 | NUR ---
SEE/RN AM SHIFT INITIAL NOTES RECEIVED PT AWAKE IN BED, PT IS OBTUNDED, OPEN EYES, NO GRIMACING, ACUTE RESPIRATORY DISTRESS OR ACUTE CHANGE OF CONDITION NOTED. VENT DEPENDENT WITH RATES SET PRESCRIBED, SATURATING @ 100%, RESPIRATIONS EVEN & UNLABORED, LUNG SOUNDS RHONCHI, SUCTIONED FOR AIRWAY CLEARANCE. ON TELE WITH SINUS RHYTHM, HR 87. WITH ON GOING IV INFUSION OF NS @ 125CC/HR, IV SITE PATENT WITH NO S/S OF INFECTION. 3-WAY SERNA CATHETER IRRIGATION OF NS @ 100CC/HR INTACT WITH BLOOD/PINK TINGED URINE OUTPUT. GTF FEEDING ON HOLD ON INTERMITTENT SUCTIONING, NOTED WITH YELLOWISH GASTRIC CONTENT. PT IS COMFORTABLE, SCHEDULED AM MEDS TO BE GIVEN. CL WITHIN REACHED AND SAFETY MAINTAINED. ON GOING MONITORING.
[2019-01-18] MEDS: AMLODIPINE BESYLATE 5 MG TABLET PO SCH (09:00)
[2019-01-18] MEDS: MULTIVITAMINS,THERAGRAN 1 UDTAB TABLET PO SCH (09:03)
[2019-01-18] MEDS: LACTOBACILLUS RHAMNOSUS GG 1 EACH CAP.SPRINK GT SCH ×2 (09:03→16:24)
[2019-01-18] MEDS: FAMOTIDINE/PF INJ 20 MG/2 ML VIAL IV SCH ×2 (09:03→21:50)
[2019-01-18] MEDS: FOLIC ACID 1 MG TABLET PO SCH (09:03)
[2019-01-18] MEDS: LEVETIRACETAM (250 MG) 250 MG TABLET PO SCH ×2 (09:10→16:25)
[2019-01-18 09:46] LABS: LYMPHOCYTES % (MANUAL) 14 % (16-48); MONOCYTES % (MANUAL) 9 % (0-11.0); NEUTROPHILS % (MANUAL) 77 (42-76)
[2019-01-18 12:00] VITALS: BP 103/59
[2019-01-18 16:00] VITALS: BP 125/50
[2019-01-18] MEDS: CEFEPIME 1 GM in IV D5W 50 ML IV SCH (16:29)
--- NOTE | 2019-01-18 17:00 | NUR ---
TELE1/RN AFTERNOON ROUNDS PM CARE PROVIDED. NO CHANGE OF CONDITION. MONITORING CONTINUED.
--- NOTE | 2019-01-18 19:16 | NUR ---
TELE1/RN AM SHIFT END NOTES ALL NEEDS MET. NO ACUTE CHANGE OF CONDITION NOTED DURING THE SHIFT. PT ENDORSED TO PM NURSE TO CONTINUE CARE. CL WITHIN REACHED AND SAFETY MAINTAINED.
--- NOTE | 2019-01-18 19:25 | NUR ---
TELE/RN NOTES Patient received in bed, awake, open eyes, non verbal. No S/S of acute distress noted, breathing even and unlabored on prescribed vent settings, No SOB noted. No S/S of pain at this time, no facial grimacing noted, 3-way F/C in place, patent, connected to fluids as ordered for bladder irrigation, draining well with reddish color urine, G-tube in place, connected to intermittent suctioning with greenish color fluids, Afebrile, On tele monitoring with sinus tachy, IV sites, patent running with fluids as ordered. Safety maintained, bed at the lowest locked position, Call light within reach. Will continue to monitor resident as per plan of care.
[2019-01-18 20:00] VITALS: BP 105/49
--- NOTE | 2019-01-18 21:49 | NUR ---
mortrin not given due to bleeding
[2019-01-18] MEDS: DOCUSATE SODIUM 100 MG CAPSULE PO SCH (21:50)
[2019-01-18] MEDS: SENNOSIDES 8.6 MG TABLET GT SCH (21:50)
[2019-01-18] MEDS: ATORVASTATIN 10 MG TABLET GT SCH (21:51)
[2019-01-19] VITALS (9 sets, daily range): BP systolic 106–128; BP diastolic 49–71
[2019-01-19] MEDS: ALBUTEROL HALF STRENGTH 1.25 MG/3 ML VIAL.NEB NEB SCH ×6 (03:38→23:09)
[2019-01-19] MEDS: IPRATROPIUM NEB FS 0.5 MG/2.5 ML AMPUL.NEB NEB SCH ×6 (03:38→23:09)
--- NOTE | 2019-01-19 04:05 | NUR ---
RT NOTE Pt rec'd trached on [facility] vent on AC mode. No resp distress or sob noted. Trach is patent and secured. Sx'd for mod amt of green/yellow sputum. Alarms are set and audible. Vent plugged into red outlet. Ambu bag bedside. Will continue to monitor. Addendum: 01/19/19 at 0406 by MAREK CASE RT Amended: Links added.
[2019-01-19] MEDS: IV NS 0.9% 1,000 ML IV PRN ×2 (04:10→14:38)
[2019-01-19 06:28] LABS: BASOPHILS % (AUTO) 0.1 % (0.0-2.0); EOSINOPHILS % (AUTO) 0.2 % (0.0-6.0); LYMPHOCYTES % (AUTO) 6.3 % (20.0-44.0); MEAN CORPUSCULAR HGB CONC 34 g/dl (31.0-36.0); MEAN CORPUSCULAR VOLUME 90 fL (80-96); MONOCYTES # (AUTO) 0.4 /CMM (0.1-1.30); MONOCYTES % (AUTO) 2.6 % (2.0-12.0); NEUTROPHILS # (AUTO) 14.8 /CMM (1.8-8.9); NEUTROPHILS % (AUTO) 90.8 % (43.0-81.0); PLATELET COUNT (AUTO) 136 /CMM (150-450); RED BLOOD CELL COUNT(AUTO) 2.01 MIL/uL (4.5-6.0); WHITE BLOOD COUNT (AUTO) 16.3 K/uL (4.3-11.0)
[2019-01-19 06:54] LABS: HEMATOCRIT 18 % (39-51)
[2019-01-19 06:56] LABS: BILIRUBIN,TOTAL 0.9 mg/dL (0.2-1.0); CALCIUM, SERUM 7.8 mg/dL (8.5-10.1); CREATININE 4.5 mg/dL (0.6-1.3); PHOSPHORUS 7.2 mg/dL (2.5-4.9); POTASSIUM 5.2 mmol/L (3.5-5.1); TOTAL PROTEIN, SERUM 5.4 g/dL (6.4-8.2)
--- NOTE | 2019-01-19 06:56 | NUR ---
Received call from lab for critical lab at this time, hemoglobin 6.0 and hematocrit 18. Will follow up with
--- NOTE | 2019-01-19 07:00 | NUR ---
called [facility] line at this time for Khoi reyez, straight pin making machine operator said call back in 2
--- NOTE | 2019-01-19 07:04 | NUR ---
Fiscal Officer from [facility] called back and said will page Dr. matos, waiting for call back
--- NOTE | 2019-01-19 07:06 | NUR ---
Dr. matos called back at this time, relayed patient current condition, Vital signs and critical lab results with new order to transfuse 1 units of PRBC. Noted. will endorse to AM Shift nurse. patient in no acute distress, breathing even and unlabored. No SOB noted, trach intact, patent connected to vent with prescribed settings, 3-way F/C draining well with red color urine, connected to CBI @ 100ml/Hr. Will endorse to AM Shift nurse for ARASH. On tele monitoring with Sinus rhythm.
--- NOTE | 2019-01-19 07:10 | NUR ---
RN OPENING NOTES PT IN BED RESTING HOB ELEVATED. BLADDER IRRIGATION RUNNING. PT G-TUBE SET TO INTERMITTENT SUCTIONING. REPORT RECEIVED FROM DIRECTOR OF GOLF RN. WILL CONTINUE TO MONITOR.
[2019-01-19 07:17] LABS: ALBUMIN 1.1 g/dL (3.4-5.0)
--- NOTE | 2019-01-19 07:20 | NUR ---
labs called at this time for Critical lab results for BUN 111 and Albumin 1.1, Endorse to AM Shift nurse to Follow up with
--- NOTE | 2019-01-19 07:30 | NUR ---
RN NOTES MD BATES AWARE OF CRITICAL LAB VALUES.
[2019-01-19] MEDS: LACTOBACILLUS RHAMNOSUS GG 1 EACH CAP.SPRINK GT SCH ×2 (08:38→16:07)
[2019-01-19] MEDS: MULTIVITAMINS,THERAGRAN 1 UDTAB TABLET PO SCH (08:38)
[2019-01-19] MEDS: AMLODIPINE BESYLATE 5 MG TABLET PO SCH (08:38)
[2019-01-19] MEDS: FAMOTIDINE/PF INJ 20 MG/2 ML VIAL IV SCH ×2 (08:39→21:12)
[2019-01-19] MEDS: FOLIC ACID 1 MG TABLET PO SCH (08:39)
[2019-01-19] MEDS: LEVETIRACETAM (250 MG) 250 MG TABLET PO SCH ×2 (08:39→16:07)
--- NOTE | 2019-01-19 09:03 | NUR ---
Spoke to tobi(nurse), regarding ct he stated he will call when patient is ready to go to ct.
[2019-01-19] MEDS: CEFEPIME 1 GM in IV D5W 50 ML IV SCH (15:53)
--- NOTE | 2019-01-19 19:15 | NUR ---
TELE/RN NOTES Patient received in bed, Awake, open eyes, breathing even and unlabored on prescribed vent settings, No SOB noted. Patient with on going blood transfusion. Patient noted with Decrease temperature at this time 94.8, Axillary, rechecked, still noted 94.8, patient skin cold to touch, Other vital BP 124/66, pulse 78, R-16, O2 sat 98%, Called Dr Westfall with new order for Cheng rizzo, Ordered STAT hemoglobin and hematocrit post transfusion. safety maintained, bed at the lowest locked position, will continue to monitor,
--- NOTE | 2019-01-19 19:27 | NUR ---
RN CLOSING NOTES REPORT GIVEN TO INTENSIVE CARE AMBULANCE PARAMEDIC RN. BLOOD TRANSFUSION STILL GOING ENDORSED TO INTENSIVE CARE AMBULANCE PARAMEDIC RN FOR ARASH.
--- NOTE | 2019-01-19 19:32 | NUR ---
END OF BLOOD TRANSFUSION VITALS 126/71, 73, 100%, TEMP. 95.6
[2019-01-19 21:06] LABS: HEMOGLOBIN 7.7 g/dL (13.5-17.5)
[2019-01-19] MEDS: ATORVASTATIN 10 MG TABLET GT SCH (21:12)
[2019-01-19] MEDS: SENNOSIDES 8.6 MG TABLET GT SCH (21:12)
[2019-01-19] MEDS: DOCUSATE SODIUM LIQ 100 MG/10 ML UDC GT SCH (21:12)
--- NOTE | 2019-01-19 21:58 | NUR ---
patient temperature gradually increasing 95.8 at this time, abiodun hugger in place.
[2019-01-20] VITALS (7 sets, daily range): BP systolic 110–132; BP diastolic 59–71
[2019-01-20] MEDS: IV NS 0.9% 1,000 ML IV PRN (02:09)
[2019-01-20] MEDS: IPRATROPIUM NEB FS 0.5 MG/2.5 ML AMPUL.NEB NEB SCH ×5 (03:22→19:37)
[2019-01-20] MEDS: ALBUTEROL HALF STRENGTH 1.25 MG/3 ML VIAL.NEB NEB SCH ×5 (03:22→19:37)
[2019-01-20 06:48] LABS: BASOPHILS % (AUTO) 0.2 % (0.0-2.0); EOSINOPHILS % (AUTO) 0.4 % (0.0-6.0); HEMATOCRIT 22 % (39-51); HEMOGLOBIN 7.5 g/dL (13.5-17.5); LYMPHOCYTES # (AUTO) 0.8 /CMM (0.8-4.8); MEAN CORPUSCULAR HGB CONC 34 g/dl (31.0-36.0); MEAN CORPUSCULAR VOLUME 89 fL (80-96); MONOCYTES # (AUTO) 0.4 /CMM (0.1-1.30); NEUTROPHILS # (AUTO) 12.5 /CMM (1.8-8.9); NEUTROPHILS % (AUTO) 90.4 % (43.0-81.0); PLATELET COUNT (AUTO) 157 /CMM (150-450); RED BLOOD CELL COUNT(AUTO) 2.51 MIL/uL (4.5-6.0); WHITE BLOOD COUNT (AUTO) 13.8 K/uL (4.3-11.0)
--- NOTE | 2019-01-20 07:15 | NUR ---
TELE/RN NOTES Patient remained in bed, awake, open eyes, non verbal. No S/S of acute distress noted, breathing even and unlabored on prescribed vent settings, No SOB noted. No S/S of pain at this time, no facial grimacing noted, 3-way F/C in place, patent, connected to fluids as ordered for bladder irrigation, draining well with reddish color urine with output 1900 in this shift, G-tube in place, connected to intermittent suctioning with greenish color fluids 300 cc in this shift, resident temp 97.6 at this time, On tele monitoring with sinus rhythm, IV sites, patent running with fluids as ordered. Safety maintained, bed at the lowest locked position, Call light within reach. due meds given as ordered, treatments rendered, tolerated well. endorsed to AM shift nurse for ARASH.
[2019-01-20 07:42] LABS: BILIRUBIN,TOTAL 0.7 mg/dL (0.2-1.0); CALCIUM, SERUM 7.1 mg/dL (8.5-10.1); CREATININE 4.8 mg/dL (0.6-1.3); MAGNESIUM 2.2 mg/dL (1.8-2.4); POTASSIUM 5.9 mmol/L (3.5-5.1); TOTAL PROTEIN, SERUM 5.6 g/dL (6.4-8.2)
[2019-01-20 07:50] LABS: ALBUMIN 1.1 g/dL (3.4-5.0); PHOSPHORUS 8.7 mg/dL (2.5-4.9)
[2019-01-20] MEDS ORDERED: DEXTROSE 50%-WATER 50 ML DISP.SYRIN IVP STA (08:17)
--- NOTE | 2019-01-20 08:28 | NUR ---
RT NOTE PT RECEIVED ON MECH VENT WITH NO RESP DISTRESS OR SOB NOTED. PT SX'D AND BREATHING TX GIVEN. NO ADVERSE REACTIONS NOTED. VENT IS PLUGGED INTO RED OUTLET AND ALARMS ARE ON AND AUDIBLE. AMBU BAG AND SPARE TRACH ARE AT BEDSIDE. PT'S TRACH IS PATENT AND SECURE. WILL CONT TO MONITOR PT THROUGH OUT SHIFT.
[2019-01-20] MEDS: LACTOBACILLUS RHAMNOSUS GG 1 EACH CAP.SPRINK GT SCH ×2 (08:36→16:38)
[2019-01-20] MEDS: FOLIC ACID 1 MG TABLET PO SCH (08:36)
[2019-01-20] MEDS: MULTIVITAMINS,THERAGRAN 1 UDTAB TABLET PO SCH (08:36)
[2019-01-20] MEDS: LEVETIRACETAM (250 MG) 250 MG TABLET PO SCH ×2 (08:36→16:38)
[2019-01-20] MEDS: AMLODIPINE BESYLATE 5 MG TABLET PO SCH (08:37)
[2019-01-20] MEDS: FAMOTIDINE/PF INJ 20 MG/2 ML VIAL IV SCH ×2 (08:37→21:36)
--- NOTE | 2019-01-20 08:50 | NUR ---
rn note at 0813 blood glucose was 45mg/dl, TUNNEL INSPECTOR Julian contacted and oder for dextrose one dose obtained, and given, pt blood sugar went up to 125mg/dl later. also 0816 BUN, Phos levels reported as well to the TUNNEL INSPECTOR, she said she will contact Dr Jara, and change IVF. Verified with her as well about Gtube to be on LIS. will carry out orders and continue to monitor.
[2019-01-20] MEDS: IV D5/ 0.9% NACL 1,000 ML IV PRN ×2 (09:06→23:07)
[2019-01-20] MEDS ORDERED: DEXTROSE 50%-WATER 50 ML DISP.SYRIN IV PRN (12:30)
[2019-01-20] MEDS: BLOOD SUGAR DIAGNOSTIC 1 EACH STRIP IN SCH ×3 (12:59→21:12)
[2019-01-20] MEDS: CEFEPIME 1 GM in IV D5W 50 ML IV SCH (16:38)
--- NOTE | 2019-01-20 19:25 | NUR ---
TELE/RN NOTES Patient received in bed, awake, open eyes, non verbal. No S/S of acute distress noted, breathing even and unlabored on prescribed vent settings, No SOB noted. No S/S of pain at this time, no facial grimacing noted, 3-way F/C in place, patent, connected to fluids as ordered for bladder irrigation, draining with reddish/orange color urine, G-tube in place, connected to intermittent suctioning with greenish color fluids, Cheng huger in place to lowest settings temprature 97.8, IV sites, patent running with fluids as ordered. Safety maintained, bed at the lowest locked position, Call light within reach. Will continue to monitor resident as per plan of care.
[2019-01-20] MEDS: DOCUSATE SODIUM LIQ 100 MG/10 ML UDC GT SCH (21:35)
[2019-01-20] MEDS: SENNOSIDES 8.6 MG TABLET GT SCH (21:35)
[2019-01-20] MEDS: ATORVASTATIN 10 MG TABLET GT SCH (21:36)
[2019-01-21] VITALS: BP 113/67
[2019-01-21] MEDS: IPRATROPIUM NEB FS 0.5 MG/2.5 ML AMPUL.NEB NEB SCH ×4 (01:06→11:45)
[2019-01-21] MEDS: ALBUTEROL HALF STRENGTH 1.25 MG/3 ML VIAL.NEB NEB SCH ×4 (01:06→11:45)
[2019-01-21] MEDS: BLOOD SUGAR DIAGNOSTIC 1 EACH STRIP IN SCH ×4 (01:31→12:18)
--- NOTE | 2019-01-21 02:51 | NUR ---
patient's scrotum and penis with worsening swelling, Called Dr. Khoi reyez, at this time with order to Hold bladder irrigation until further order. Noted. Will continue to monitor, Elevation done
[2019-01-21 04:00] VITALS: BP 113/65
[2019-01-21 06:21] LABS: BASOPHILS % (AUTO) 0.3 % (0.0-2.0); EOSINOPHILS % (AUTO) 0.8 % (0.0-6.0); HEMATOCRIT 21 % (39-51); HEMOGLOBIN 7.1 g/dL (13.5-17.5); LYMPHOCYTES # (AUTO) 0.8 /CMM (0.8-4.8); LYMPHOCYTES % (AUTO) 5.8 % (20.0-44.0); MEAN CORPUSCULAR HGB CONC 34 g/dl (31.0-36.0); MEAN CORPUSCULAR VOLUME 88 fL (80-96); MONOCYTES # (AUTO) 0.5 /CMM (0.1-1.30); MONOCYTES % (AUTO) 3.4 % (2.0-12.0); NEUTROPHILS # (AUTO) 12.7 /CMM (1.8-8.9); NEUTROPHILS % (AUTO) 89.7 % (43.0-81.0); PLATELET COUNT (AUTO) 200 /CMM (150-450); RED BLOOD CELL COUNT(AUTO) 2.38 MIL/uL (4.5-6.0); WHITE BLOOD COUNT (AUTO) 14.2 K/uL (4.3-11.0)
[2019-01-21 07:00] LABS: CALCIUM, SERUM 6.3 mg/dL (8.5-10.1); CREATININE 5.5 mg/dL (0.6-1.3); MAGNESIUM 2.3 mg/dL (1.8-2.4)
--- NOTE | 2019-01-21 07:21 | NUR ---
TELE/RN NOTES Patient remained in bed, awake, open eyes, non verbal. No S/S of acute distress noted, breathing even and unlabored on prescribed vent settings, No SOB noted. No S/S of pain at this time, no facial grimacing noted, 3-way F/C in place, patent, held bladder irrigation as ordered, G-tube in place, connected to intermittent suctioning with greenish color fluids 300 cc in this shift, On tele monitoring with sinus rhythm, IV sites, patent running with fluids as ordered. Safety maintained, bed at the lowest locked position, Call light within reach. due meds given as ordered, treatments rendered, tolerated well. endorsed to AM shift nurse for ARASH.
[2019-01-21 07:29] LABS: PHOSPHORUS 9.5 mg/dL (2.5-4.9)
[2019-01-21 08:00] VITALS: BP_SYST 113; BP_SYST 133; BP_DIAS 62
--- NOTE | 2019-01-21 08:00 | NUR ---
TELE1/RN AM SHIFT INITIAL NOTES RECEIVED PT ASLEEP IN BED, PT IS OBTUNDED, OPEN EYES SPONTANEOUSLY, NO GRIMACING OR ACUTE CHANGE OF CONDITION NOTED, ON VENTILATOR WITH RATES SET PRESCRIBED, SATURATING @ 100%, RESPIRATIONS EVEN & UNLABORED, LUNG SOUNDS CLEAR, SUCTIONED FOR AIRWAY CLEARANCE. GT FEEDING IS HELD, ON INTERMITTENT SUCTIONING NOTED WITH YELLOW GREENISH GASTRIC CONTENT, ABDOMEN IS DISTENDED, TIGHT/HARD TO THE TOUCH. SERNA CATHETER NOTED WITH PINK TINGED URINE OUTPUT, IRRIGATION WAS HELD SINCE PM SHIFT PER MDs ORDER. WITH ON GOING IV INFUSION OF D5NS @ 75CC/HR, IV SITE PATENT WITH NO S/S OF INFECTION. PT IS COMFORTABLE, SCHEDULED AM MEDS TO BE GIVEN. CL WITHIN REACHED AND SAFETY MAINTAINED. ON GOING MONITORING. Addendum: 01/21/19 at 1139 by NICK SANDHU RN ADDENDUM: ON TELE WITH SINUS RHYTHM, HR 79. UPON RE-ASSESSMENT OF SERNA CATHETER OUTPUT, NOTED NOT PINK TINGED BUT RED TINGED URINE OUTPUT.
[2019-01-21] MEDS: FAMOTIDINE/PF INJ 20 MG/2 ML VIAL IV SCH (09:32)
[2019-01-21] MEDS: LEVETIRACETAM (250 MG) 250 MG TABLET PO SCH (09:32)
[2019-01-21] MEDS: LACTOBACILLUS RHAMNOSUS GG 1 EACH CAP.SPRINK GT SCH (09:33)
[2019-01-21] MEDS: MULTIVITAMINS,THERAGRAN 1 UDTAB TABLET PO SCH (09:33)
[2019-01-21] MEDS: FOLIC ACID 1 MG TABLET PO SCH (09:33)
[2019-01-21] MEDS: AMLODIPINE BESYLATE 5 MG TABLET PO SCH (09:33)
[2019-01-21 12:00] VITALS: BP_SYST 113; BP_SYST 133; BP_DIAS 60
[2019-01-21] MEDS: IV D5/ 0.9% NACL 1,000 ML IV PRN (12:12)
[2019-01-21] MEDS ORDERED: MORPHINE SULFATE INJ 4 MG/ML DISP.SYRIN IV ONE ×2 (13:00→13:30)
[2019-01-21] MEDS ORDERED: MORPHINE SULFATE INJ 10 MG/ML DISP.SYRIN IV ONE (13:00)
--- NOTE | 2019-01-21 13:27 | NUR ---
TELE1/RN COMFORT CARE PT RECEIVED A TOTAL OF 14MG MORPHINE IVP, PRIMARY (FRANCES REDMAN) AT BEDSIDE WITH RESPIRATORY THERAPIST AND FAMILY MEMBERS AT BEDSIDE. VENTILATOR REMOVED PART OF COMFORT CARE. ON GOING MONITORING.
--- NOTE | 2019-01-21 13:30 | NUR ---
d/c vent for comfort care. FRANCES Jordan at bed side
[2019-01-21] MEDS ORDERED: MIDAZOLAM HCL 2 MG/2ML VIAL IV ONE (14:30)
[2019-01-21] MEDS ORDERED: MORPHINE SULFATE INJ 4 MG/ML DISP.SYRIN IV PRN (14:30)
[2019-01-21] MEDS ORDERED: MORPHINE SULFATE IV PRN (15:00)
[2019-01-21] MEDS ORDERED: D5W IV PRN (15:00)
--- NOTE | 2019-01-21 15:48 | NUR ---
TELE1/RN AFTERNOON ROUNDS PT OFF THE VENT FOR COMFORT MEASURES, AWAITING FOR MORPHINE TO START IV DRIP. ON GOING MONITORING.
[2019-01-21 16:00] VITALS: BP 119/64
[2019-01-21] MEDS: CEFEPIME 1 GM in IV D5W 50 ML IV SCH (16:00)
[2019-01-21] MEDS ORDERED: KEY,NONCONTROL,TO KEEP IN PYXI 1 EA MC ONE ×2 (16:23→18:44)
--- NOTE | 2019-01-21 16:38 | NUR ---
TELE1/RN MORPHINE DRIP MORPHINE DRIP STARTED @ 5MG/HR. ON GOING MONITORING.
--- NOTE | 2019-01-21 16:55 | NUR ---
TELE1/RN PM MEDS PM MEDS HELD. PT ON COMFORT MEASURES.
--- NOTE | 2019-01-21 17:11 | NUR ---
TELE1/RN D/C MEDS - EXCEPT MORPHINE DRIP VERIFIED WITH ELECTRICIAN'S ASSISTANT Sandra REDMAN TO DISCONTINUED ALL MEDICATIONS EXCEPT FOR THE MORPHINE DRIP. ORDERS CARRIED OUT.
--- NOTE | 2019-01-21 18:45 | NUR ---
TELE1/RN TITRATE MORPHINE DRIP RATE PT NOTED GASPING, INCREASED RATE OF MORPHINE DRIP TO 10MG/HR. MONITORING.
--- NOTE | 2019-01-21 19:36 | NUR ---
TELE1/RN AM SHIFT INITIAL NOTES ALL NEEDS MET. PT ENDORSED TO PM NURSE TO CONTINUE CARE. PT CURRENTLY ON 10MG/HR MORPHINE DRIP. SAFETY MAINTAINED.
[2019-01-21 20:00] VITALS: BP 106/59
--- NOTE | 2019-01-21 20:00 | NUR ---
rn notes received patient on comfort measures with family member at the bedside. patient is on morphine drip 10mg/hr. no s/s of pain at this time. will continue to monitor patient.
--- NOTE | 2019-01-21 20:52 | NUR ---
2051 NOTED PATIENT ASYSTOLE ON THE MONITOR. WENT TO PATIENT ROOM AND NOTED PATIENT WITH PALE SKIN. NO PULSE PALPATED WHEN CHECKED. NO RISE AND FALL AND CHEST NOTED. NO HEART TONE NOTED ON AUSCULTATION. PUPILS FIXED WHEN CHECKED. PRONOUNCED AT THIS TIME. PATIENT MOTHER AT BEDSIDE AND AWARE OF PATIENT'S PASSING. SPOKE WITH PATIENT'S SON STEFANIE ON THE PHONE AND NOTIFIED HIM ALSO OF PATIENT'S PASSING.
--- NOTE | 2019-01-21 21:20 | NUR ---
2119 FRANCES OTERO NOTIFIED OF PATIENT'S .
--- NOTE | 2019-01-21 21:50 | NUR ---
2150 PATIENT'S SON STEFANIE HERE AND VERIFIED WITH HIM [facility]ATION NUMBER [phone] AND HE SAID IT IS THE NUMBER TO CALL.
--- NOTE | 2019-01-21 22:00 | NUR ---
2200 CALLED [facility] TO REPORT . SPOKE WITH CHERRY AND DECLINED PATIENT, CASE [id number] OBTAINED.
--- NOTE | 2019-01-21 22:15 | NUR ---
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
== END 2019-01-21 23:07 | disposition expired | DRG 720 ==
LOC: ER 00:52 → ICU 04:40 → TELE-TD 01-16 18:36 → TELE1 01-18 09:51
PROVIDERS: ADMIT Hospitalist; ATTEND Nurse Practitioner Acute Care
PROC: 30233K1 Transfusion of Nonautologous Frozen Plasma into Peripheral Vein, Percutaneous Approach (ICD-10-PCS; principal; 2019-01-15)
PROC: 30233N1 Transfusion of Nonautologous Red Blood Cells into Peripheral Vein, Percutaneous Approach (ICD-10-PCS; principal; 2019-01-15)
PROC: 5A1955Z Respiratory Ventilation, Greater than 96 Consecutive Hours (ICD-10-PCS; principal; 2019-01-15)
DX: A41.9 Sepsis, unspecified organism (principal); N17.0 Acute kidney failure with tubular necrosis; Z99.11 Dependence on respirator [ventilator] status; G93.41 Metabolic encephalopathy; R40.3 Persistent vegetative state; J18.9 Pneumonia, unspecified organism; J96.11 Chronic respiratory failure with hypoxia; R53.2 Functional quadriplegia; D68.9 Coagulation defect, unspecified; Z51.5 Encounter for palliative care; D69.6 Thrombocytopenia, unspecified; D64.9 Anemia, unspecified; N30.01 Acute cystitis with hematuria; Z66 Do not resuscitate; E83.52 Hypercalcemia; I12.9 Hypertensive chronic kidney disease with stage 1 through stage 4 chronic kidney disease, or unspecified chronic kidney disease; N18.4 Chronic kidney disease, stage 4 (severe); E87.5 Hyperkalemia; J98.11 Atelectasis; R13.10 Dysphagia, unspecified; E11.22 Type 2 diabetes mellitus with diabetic chronic kidney disease; Z86.73 Personal history of transient ischemic attack (TIA), and cerebral infarction without residual deficits; B96.1 Klebsiella pneumoniae [K. pneumoniae] as the cause of diseases classified elsewhere; B96.4 Proteus (mirabilis) (morganii) as the cause of diseases classified elsewhere; R17 Unspecified jaundice; Z83.3 Family history of diabetes mellitus; R16.0 Hepatomegaly, not elsewhere classified; K56.7 Ileus, unspecified; K52.9 Noninfective gastroenteritis and colitis, unspecified
CPT/HCPCS: 31720; 36415; 36600; 70450-TC; 71045-TC; 71250-TC; 74018; 76700-TC; 76770-TC; 80048-TC; 80053-TC; 80061-TC; 80076-TC; 80202-TC; 81000-TC; 82040-TC; 82247-TC; 82248-TC; 82272-TC; 82330; 82728-TC; 82784; 82803-TC; 82962-TC; 83540-TC; 83605-TC; 83615-TC; 83735-TC; 84100-TC; 84155; 84165; 84443-TC; 84484-TC; 85025-TC; 85027-TC; 85385-TC; 85730-TC; 86334; 86850-TC; 86880-TC; 86921-TC; 87040-TC; 87081-TC; 87086-TC; 87186-TC; 94003-TC; 94760-TC; 94762-TC; 99082-TC; A4216; A4217; A6253; A6403; A7526; G0378; J0692; J1200; J1815; J2185; J2250; J2270; J2274; J2405; J2543; J3370; J3430; J3490; J7030; J7040; J7042; J7050; J7060; J7070; P9016-BL; P9017-BL